=== PATIENT | male | born 1955 | race Two or more races ===

== ENCOUNTER 2024-03-24 19:31 | Inpatient (IN) | payer MEDICARE, MEDICAID, SELFPAY ==
[2024-03-24 19:31] VITALS: BMI 24.3
[2024-03-24 20:05] VITALS: BP 149/90; PULSE 69; RESP 17; TEMP 36.8; O2SAT 97
--- NOTE | 2024-03-24 20:11 | XR_ITS ---
Examination: CT abdomen and pelvis without contrast. Coronal 3-D reconstructions. Sagittal 2-D reconstructions. Date and time of exam:March 24, 2024 1010 hrs. Indications: Left-sided abdominal pain beginning 2 days ago Comparison: July 01, 2009 CTDI: vol (mGy): 5.86 DLP: (mGycm): 363 Technique: Axial images of the abdomen have been obtained, 3 mm slice thickness Intravenous contrast material has not been administered. Low dose protocols were performed. One or more of the following dose reduction techniques were used; automated exposure control, adjustment of the mA and/or KV according to patient size, use of iterative reconstruction technique. Findings: Pneumoperitoneum No focal liver or splenic lesions Absent gallbladder No pancreatic mass Aorta normal size No renal or ureteral calculi, no hydronephrosis No bowel obstruction No pericecal inflammatory change Colonic diverticulosis Prostatomegaly, transverse prostate dimension 4.8 cm Small fat-containing right inguinal hernia Mild thickening of the urinary bladder wall Impression: Pneumoperitoneum, which may be from the patient's colonic diverticulosis, but clinical correlation advised Recommend surgical assessment No diverticulitis Moderate prostatomegaly Mild urinary bladder wall thickening, consider cystitis early outflow obstruction secondary to the patient's prostatomegaly
--- NOTE | 2024-03-24 20:12 | PD.EDRME ---
Rapid Medical Screening Exam RME Arrival date/time: 03/24/24 19:31 68-year-old male presents emergency department complaining of left lower quadrant abdominal pain it has been ongoing for 2 days. Chief Complaint: Abdominal Pain Time Seen by Provider: 03/24/24 20:06 Vital signs: Vital Signs Temperature 98.3 F 03/24/24 20:05 Pulse Rate 69 03/24/24 20:05 Respiratory Rate 17 03/24/24 20:05 Blood Pressure 149/90 H 03/24/24 20:05 Pulse Oximetry (%) 97 03/24/24 20:05 Oxygen Delivery Method Room Air 03/24/24 20:05 Vital signs reviewed by provider: Yes
[2024-03-24] MEDS: KETOROLAC INJ 60 MG/2 ML VIAL 30 MG IM (20:27)
[2024-03-24 20:32] LABS: Collection Type, Urine Clean Catch; Squamous Epithelial Cell,Urine 0 /hpf (0-5)
[2024-03-24 20:38] LABS: Bilirubin,Urine Negative (Negative); Blood,Urine Negative (Negative); Clarity,Urine Clear (Clear/Hazy); Color,Urine Colorless (Lt Yel-Yel); Culture Indicated,Urine Not Indicated; Glucose, Urine Negative (Negative); Ketones,Urine Negative (Negative); Leukocyte Esterase,Urine Negative (Negative); Nitrite,Urine Negative (Negative); PH,Urine 6.5 (5.0-7.0); Protein,Urine Negative (Neg - Trace); RBC,Urine 1 /hpf (0-3); Specific Gravity,Urine 1.007 (1.001-1.035); Urobilinogen,Urine Negative mg/dL (0.0-1.0); WBC,Urine < 1 /hpf (0-5)
[2024-03-24 21:28] LABS: Basophils % (Auto) 0 % (0-2.5); Eosinophils # (Auto) 0.1 Thou/mm3 (0.0-0.5); Eosinophils % (Auto) 1 % (0-10); Hematocrit 45.3 % (41.0-53.0); Hemoglobin 15.3 g/dL (13.5-16.0); Immature Granulocytes % (Auto) 0 % (0-0); Immature Granulocytes Auto 0.01 Thou/mm3 (0.00-0.00); Lymphocytes # (Auto) 2.3 Thou/mm3 (1.0-4.8); Lymphocytes % (Auto) 25 % (10-50); Mean Corpuscular HGB Conc 33.8 g/dl (31.0-37.0); Mean Corpuscular Hemoglobin 30.8 pg (25.0-35.0); Mean Corpuscular Volume 91 fL (80-100); Monocytes # (Auto) 0.8 Thou/mm3 (0.0-0.8); Monocytes % (Auto) 8 % (0-12); Neutrophils # (Auto) 6.2 Thou/mm3 (1.8-7.7); Neutrophils % (Auto) 65 % (37-80); Nucleated Red Blood Cell % 0 /100 WBC (0); Platelet Count 261 Thou/mm3 (140-440); RDW Standard Deviation 41.1 fL (35.1-43.9); Red Blood Count 4.97 Miln/mm3 (4.50-5.90); White Blood Count 9.5 Thou/mm3 (3.8-10.6)
[2024-03-24 22:03] LABS: Alanine Aminotransferase 19 U/L (10-49); Albumin, Serum 4.5 gm/dL (3.4-4.8); Albumin/Globulin Ratio 1.7 (1.2-2.2); Alkaline Phosphatase 81 U/L (46-116); Anion Gap 6 (7-16); Aspartate Amino Transferase 21 U/L (0-34); BUN/Creatinine Ratio 13 Ratio (12-20); Bilirubin,Total 1.4 mg/dL (0.3-1.2); Blood Urea Nitrogen 12 mg/dL (9-23); Calcium 9.7 mg/dL (8.3-10.6); Calcium (Corrected) 9.7 mg/dL (8.5-10.1); Chloride 103 mMol/L (98-107); Creatinine (Component) 0.9 mg/dL (0.6-1.3); Estimated Creatinine Clearance 70.2 mL/min (>60); Globulin 2.7 gm/dL (2.3-3.5); Glucose 97 mg/dL (74-106); Lipase 49 U/L (12-53); Osmolality,Calculated 277 (275-295); Potassium 4.4 mMol/L (3.4-5.1); Sodium 139 mMol/L (136-145); Total Protein 7.2 gm/dL (5.7-8.2); eGFR > 60 See Note
[2024-03-24 23:50] VITALS: BP 141/75; PULSE 52; RESP 18; TEMP 36.6; O2SAT 96
[2024-03-25] VITALS (9 sets, daily range): BP systolic 115–162; BP diastolic 68–93; PULSE 53–67; RESP 16–18; TEMP 36–37.1; O2SAT 95–99; BMI 22.8
[2024-03-25] MEDS: PIPER/TAZO INJ 3.375 GM in SODIUM CHLORIDE 0.9% (P) 50 ML IV (00:25)
[2024-03-25 00:26] LABS: Lactate (Lactic Acid) 0.6 mMol/L (0.4-2.0)
[2024-03-25 00:42] LABS: Partial Thromboplastin Time 29.9 Seconds (22.0-36.0); Prothrombin Time 11.3 Seconds (9.0-12.2)
[2024-03-25 01:09] LABS: Procalcitonin 0.61 ng/ml (0.0-0.49)
--- NOTE | 2024-03-25 01:23 | ESHP_ITS ---
Documentation for date of: 03/25/24 HPI History of Present Illness Chief complaint: Abdominal Pain History of present illness: 68-year-old male with no significant past medical history other than chronic back pain secondary to vocation ([employer]) presenting to the ED on 03/25 with left lower quadrant abdominal pain which started at 10 AM on 03/24. Patient states that he was at his usual baseline and having breakfast this morning when pain slowly started and progressively worsened. He states that he took an ibuprofen which did not help subside the pain; moreover, he denies having any changes in his diet or any trauma to the area. Patient went to his family doctor, [facility], who redirected the patient to the ED as the pain was too severe to manage outpatient. Patient last visits for yearly physical and labs were completed sometime this year; however, he denies any other chronic medical problems or taking any prescribed medications. History was also taken alongside the patient's son who is bedside and who currently lives with the patient. Per son, the patient has recently traveled to [facility] about 2 weeks ago by bus. Patient states that he did not have any sick contacts while on a trip nor does he mention any concerning symptoms such as nausea/vomiting/diarrhea, melena, hematochezia, hematemesis or dysuria. 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 Pertinent lab findings included WBC of 9.5, hemoglobin 15.3, BUN 12, creatinine 0.9, T. bili 1.4, AST 21, ALT 19, alk phos 81, lipase 49, Pro-Renard 0.61. Urinalysis negative for any urinary tract infection. CT abdomen pelvis shows pneumoperitoneum from possible colonic diverticulosis; no diverticulitis, moderate prostatomegaly and mild urinary bladder wall thickening noted. Patient will be admitted secondary to pneumoperitoneum likely due to perforated diverticulosis; will start on IV Zosyn and general surgery (Dr. Tolentino) consulted, appreciate recommendations. Exam Vital Signs Temp Pulse Resp BP Pulse Ox O2 Del Method 97.8 F 53 L 17 143/93 H 99 Room Air 03/24/24 23:50 03/25/24 00:28 03/25/24 00:28 03/25/24 00:28 03/25/24 00:28 03/24/24 23:50 Narrative Exam Physical Exam: GENERAL: Awake, answering questions appropriately, appears stated age HEENT: NC/AT. Moist mucosa. PERRLA/EOMI. CARDIO: Heart RRR, no obvious murmurs, no JVD. PULM: No coughing or visible SOB. Lungs CTA B/L. 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 +Pedal pulses present B/L. NEURO: Oriented x3, assembler 1st shift strength 5/5, Moves extremities x4. Results: Labs 03/24/24 20:41 03/24/24 20:41 Labs: Short CBC 03/24/24 Range/Units 20:41 WBC 9.5 (3.8-10.6) Thou/mm3 Hgb 15.3 (13.5-16.0) g/dL Hct 45.3 (41.0-53.0) % Plt Count 261 (140-440) Thou/mm3 BMP 03/24/24 20:41 Sodium 139 Potassium 4.4 Chloride 103 Carbon Dioxide 30.0 BUN 12 Creatinine 0.9 Glucose 97 Calcium 9.7 Liver Function 03/24/24 Range/Units 20:41 Total Bilirubin 1.4 H (0.3-1.2) mg/dL AST 21 (0-34) U/L ALT 19 (10-49) U/L Alkaline Phosphatase 81 (46-116) U/L Albumin 4.5 (3.4-4.8) gm/dL Urine 03/24/24 Range/Units 20:19 Urine Color Colorless A (Lt Yel-Yel) Urine Clarity Clear (Clear/Hazy) Urine pH 6.5 (5.0-7.0) Ur Specific [place] 1.007 (1.001-1.035) Urine Protein Negative (Neg - Trace) Urine Glucose (UA) Negative (Negative) Quality Measures Quality Measures VTE prophylaxis Advance care planning discussed with:: patient and child Medications Home Medications and Allergies Allergies Allergy/AdvReac Type Severity Reaction Status Date / Time No Known Allergies Allergy Mild Uncoded 11/19/14 21:29 Visit Medications Piperacillin/Tazobactam/Dextrose (Zosyn) 50 mls @ 100 mls/hr IV Q8HR [facility] Stop: 04/01/24 05:59 Ketorolac Tromethamine (Ketorolac Inj 30 Mg/Ml Vial) 30 mg IVP Q6HR PRN PRN Reason: Pain 4-6 Stop: 03/30/24 01:19 Morphine Sulfate (Morphine Sulf Inj 10 Mg/Ml Vial) 0.5 mg IVP Q4HR PRN PRN Reason: Pain 7-10 Ondansetron HCl (Ondansetron Inj 2 Mg/Ml Inj 2 Ml) 4 mg IV Q6H PRN; Protocol PRN Reason: NAUSEA OR VOMITING Stop: 04/24/24 01:12 Discontinued Medications Heparin Sodium (Porcine) (Heparin Sod Inj 5000 Unit/Ml Vial) 5,000 unit SC Q12HR [facility] Stop: 04/08/24 08:59 Piperacillin Sod/Tazobactam (Sod 3.375 gm/ Sodium Chloride) 50 mls @ 100 mls/hr IV X1 ONE Stop: 03/25/24 00:14 Last Infusion: 03/25/24 01:06 Dose: Infused Ketorolac Tromethamine (Ketorolac Inj 60 Mg/2 Ml Vial) 30 mg IM X1 ONE Stop: 03/24/24 20:12 Last Admin: 03/24/24 20:27 Dose: 30 mg Metoclopramide HCl (Metoclopramide Inj 5 Mg/Ml Vial 2 Ml) 5 mg IVP X1 ONE; Protocol Stop: 03/25/24 00:31 Last Admin: 03/25/24 01:07 Dose: Not Given Assessment & Plan Plan 68-year-old male with no significant past medical history other than chronic back pain secondary to vocation ([employer]) presenting with left lower quadrant abdominal pain which started at 10 AM on 03/24 will be admitted secondary to pneumoperitoneum likely due to perforated diverticulosis; will start on IV Zosyn and general surgery (Dr. Tolentino) consulted, appreciate recommendations. #Pneumoperitoneum #Diverticulosis Patient presenting with LLQ pain which started at 10am and has progressively worsened No history of diverticulosis in the past Denies changes to diet, trauma to area, concerning symptoms such as (N/V/D, melena, hematochezia, hematemesis, changes in bowel habits) Patient attempted Ibuprofen which did not help with symptoms In the ED, CT Abd/P was ordered which showed pneumoperitoneum Procal mildly elevated 0.61 Plan: General Surgery consulted, appreciate recs IV Zosyn started NPO pending surgery recs Multimodal analgesia IV Zofran as needed #Elevated T.bili Likely 2/2 to acutely ill status Rest of liver enzymes wnl CT Abd/P shows no active disease process Plan: Monitor for now #Hypertensive Patient has no history of hypertension or taking antihypertensives Likely 2/2 to pain1 Plan: Continue to monitor for now #Moderate prostatomegaly #Mild urinary bladder wall thickening #Chronic Back Pain Chronic medical problems not pertinent to following admission Patient denies dysuria, hematuria or changes in urinary frequency Has a Cleaning put in in the ED for possible surgery Plan: Follow-up with PCP outpatient Hospital Management: Lines - PIV Diet - NPO Bowel - None for now GI prophylaxis - Will consider protonix if patient remains NPO DVT prophylaxis - SCD Dispo - Pneumoperitoneum 2/2 diverticulosis; pending Gen Surg recs Code - Full Patient seen and assessed with attending Dr. Robles and senior resident Dr. Connor Bae, PGY-1 Attending Provider Attestation/Addendum 68-year-old male patient was admitted for abdominal pain. Workup including CT scan showed pneumoperitoneum. Patient stated he had surgery for gallbladder removal many years ago. CT scan of the abdomen also showed diverticulosis. Patient has no fever no leukocytosis. Patient will be admitted antibiotic treatment and surgical evaluation.
[2024-03-25] MEDS: PIPER/TAZO 3.375 GM 50 ML IV ×3 (05:32→21:25)
[2024-03-25 05:36] LABS: Basophils % (Auto) 0 % (0-2.5); Eosinophils # (Auto) 0.2 Thou/mm3 (0.0-0.5); Eosinophils % (Auto) 2 % (0-10); Hematocrit 42.2 % (41.0-53.0); Hemoglobin 14.2 g/dL (13.5-16.0); Immature Granulocytes % (Auto) 0 % (0-0); Immature Granulocytes Auto 0.01 Thou/mm3 (0.00-0.00); Lymphocytes % (Auto) 28 % (10-50); Mean Corpuscular HGB Conc 33.6 g/dl (31.0-37.0); Mean Corpuscular Hemoglobin 30.4 pg (25.0-35.0); Mean Corpuscular Volume 90 fL (80-100); Monocytes # (Auto) 0.7 Thou/mm3 (0.0-0.8); Monocytes % (Auto) 9 % (0-12); Neutrophils # (Auto) 4.4 Thou/mm3 (1.8-7.7); Neutrophils % (Auto) 60 % (37-80); Nucleated Red Blood Cell % 0 /100 WBC (0); Platelet Count 232 Thou/mm3 (140-440); RDW Standard Deviation 40.7 fL (35.1-43.9); Red Blood Count 4.67 Miln/mm3 (4.50-5.90); White Blood Count 7.3 Thou/mm3 (3.8-10.6)
[2024-03-25 06:05] LABS: Alanine Aminotransferase 19 U/L (10-49); Albumin/Globulin Ratio 1.8 (1.2-2.2); Alkaline Phosphatase 71 U/L (46-116); Anion Gap 5 (7-16); Aspartate Amino Transferase < 8 U/L (0-34); BUN/Creatinine Ratio 13 Ratio (12-20); Bilirubin,Total 1.6 mg/dL (0.3-1.2); Blood Urea Nitrogen 12 mg/dL (9-23); Calcium 8.7 mg/dL (8.3-10.6); Calcium (Corrected) 8.7 mg/dL (8.5-10.1); Carbon Dioxide 26.7 mMol/L (20.0-31.0); Cardiac Risk Estimate 2.9 RATIO (4.0-6.7); Chloride 106 mMol/L (98-107); Cholesterol 141 mg/dL (132-200); Creatinine (Component) 0.9 mg/dL (0.6-1.3); Estimated Creatinine Clearance 70.2 mL/min (>60); Globulin 2.2 gm/dL (2.3-3.5); Glucose 98 mg/dL (74-106); HDL Cholesterol 48 mg/dL (40-60); LDL Cholesterol,Calculated 79 mg/dL (0-130); Magnesium 2.5 mg/dL (1.6-2.6); Osmolality,Calculated 275 (275-295); Phosphorous 3.8 mg/dL (2.4-5.1); Potassium 3.8 mMol/L (3.4-5.1); Sodium 138 mMol/L (136-145); Thyroid Stimulating Hormone 2.89 uIU/mL (0.55-4.78); Total Protein 6.2 gm/dL (5.7-8.2); Triglycerides 68 mg/dL (30-150); eGFR > 60 See Note
[2024-03-25 06:20] LABS: Glucose Estimated Average 111 mg/dL (80-131); Hemoglobin A1C 5.5 % Hgb (4.8-6.0)
--- NOTE | 2024-03-25 07:12 | PD.SURCONS ---
HPI Consult details History of present illness: Spoke to patient with phone sign language interpreter 68M who presented to ER with left lower quadrant pain. Patient reports pain began suddenly yesterday morning, in the left lower quadrant, unlike any pain he had had before. He denies any associated nausea, fever or malaise. In ER patient is noted to have normal vital signs, normal WBC, however CT without contrast shows pneumoperitoneum, with diverticulosis but no signs of diverticulitis. This morning patient reports feeling somewhat better with slight improvement in pain PMH: Chronic back pain PSH: None Meds: None Allergies: NKDA Social history: non-smoker Family history: No known malignancy Review of Systems Review of Systems ROS Unobtainable: All systems reviewed & no additional complaints except as documented Meds Home Medications and Allergies Allergies Allergy/AdvReac Type Severity Reaction Status Date / Time No Known Allergies Allergy Mild Uncoded 11/19/14 21:29 Exam Vital Signs Temp Pulse Resp BP Pulse Ox O2 Del Method 98.7 F 53 L 18 122/78 95 Room Air 03/25/24 05:52 03/25/24 05:52 03/25/24 05:52 03/25/24 05:52 03/25/24 05:52 03/25/24 05:52 Constitutional Constitutional: no acute distress Routine Respiratory Exam Respiratory: Present no resp distress Routine Abdominal Exam Abdominal: Present soft and tenderness (Mild left lower quadrant tenderness); Absent distended, rebound, guarding, firm, rigid or mass Results Results: Laboratory Laboratory results: results reviewed Results: Imaging CT scan - abdomen: report reviewed and image reviewed Assessment & Plan Plan 68M overall healthy presenting with left lower quadrant pain and findings of pneumoperitoneum although no signs of diverticulitis or any other inflammatory process Hello. Patient appears very well clinically with improved pain, normal vital signs, normal WBC and lactate; given this clinical picture I explained to patient that I do not recommend surgical exploration at this time. All questions were answered and patient expressed understanding Continue abx NPO, IV fluids Will follow
--- NOTE | 2024-03-25 07:51 | PC.NURSE ---
Pt. here from home to room 19, pt. states he has tenderness to left lower abdominal quadrant, pt. denies any nausea or vomiting, pt. has a valdez draining clear uma urine, pt. states when he coughs or turns there is pain to left lower abdominal quadrant, 2 warm blankets given, pt. states he does not want pain meds at this time.
--- NOTE | 2024-03-25 13:07 | PC.CC ---
Addendum entered by Renny Noel II 03/25/24 13:17: Correction: Pt admitted for Pneumoperitoneum, Diverticulosis, Elevated T. bili, Hypertension, Moderate prostatomegaly, Mild urinary bladder wall thickening, Chronic Back Pain. Original Note: Pt Cta[place] Perry is a 68 yr old male admitted to hospitalist services for new onset A-fib w/RVR, Mild hyponatremia. DIRECTOR SUPPLIER QUALITY CC met with pt and daughter Miri Perry [phone] at bedside to complete initial assessment. At time of encounter pt noted to be alert and oriented to person, place and situation. Pt expressed understanding admission order. Pt able to confirm all demographic information. Pt from home [address] [place] [address], where he lives with his Iliana Perry [phone]. Pt identifies his and daughter as surrogate DM's. At baseline pt reports being independent with ambulation and with completion of ADLs. Pt is semi retired and on Work men's comp. Pt reports he does not require supplemental o2 in the home. Pt is not diabetic and is not on dialysis. Pt reports he does not have a primary provider at this time. Pt reports going to [facility] on [address], when he does see a provider. At time of D/c pt reports he will return home, with family providing transport. Advance Directive not discussed at this time. Pt provided with community resource guide to secure primary provider within the community. Pt and his daughter receptive to resources provided.
--- NOTE | 2024-03-25 16:57 | ESPR_ITS ---
<Statement entered by Wil Khanna MD - 03/25/24 20:18> Patient was seen and examined by me personally. I agree with most of the assessment and plan as discussed with the culinary internship physician, and my attending, Dr. Walters. Vitals, labs reviewed. Patient with TTP in LLQ. Gen Surg following, appreciate recs: Conservative management, NPO/IVF/IV abx. Continue to monitor and consider contrast enema to reevaluate perforation. Wil Khanna MD, PGY-3 Documentation for date of: 03/25/24 Subjective Subjective Interval history: Patient was seen and examined bedside. Complaining of abdominal pain in the left lower quadrant. Reported that his last bowel movement is yesterday. Surgery is consulted and recommended conservative management Exam Vital Signs Temp Pulse Resp BP Pulse Ox O2 Del Method 97.9 F 59 L 17 162/92 H 97 Room Air 03/25/24 12:00 03/25/24 12:00 03/25/24 12:00 03/25/24 12:00 03/25/24 12:00 03/25/24 12:00 Narrative Exam General: Awake. HEENT: Normocephalic, atraumatic, mucous membranes moist. Heart: Regular rate and rhythm, no murmurs. Lungs: Clear to auscultation with no wheezing or crackles. Abdomen: Soft, nondistended, mild tenderness in the left lower quadrant, positive bowel sounds. ?No guarding or rebound tenderness. Neurologic: Alert and oriented x3, no gross neurological deficit, and patient able to move all 4 extremities. Extremities: No edema. Skin: No rash or ecchymoses. Objective Labs 03/26/24 04:44 03/26/24 04:44 Labs: Laboratory Results - last 24 hr 03/24/24 03/24/24 03/25/24 20:19 20:41 00:14 WBC 9.5 RBC 4.97 Hgb 15.3 Hct 45.3 MCV 91 MCH 30.8 MCHC 33.8 RDW Std Deviation 41.1 Plt Count 261 Neut % (Auto) 65 Lymph % (Auto) 25 Dawson % (Auto) 8 Eos % (Auto) 1 Baso % (Auto) 0 Neut # (Auto) 6.2 Lymph # (Auto) 2.3 Dawson # (Auto) 0.8 Eos # (Auto) 0.1 Baso # (Auto) 0.0 Immature Gran # (Auto) 0.01 H Absolute Nucleated RBC 0.00 Immature Gran % 0 Nucleated RBC % 0 PT 11.3 INR 1.0 APTT 29.9 Sodium 139 Potassium 4.4 Chloride 103 Carbon Dioxide 30.0 Anion Gap 6 L BUN 12 Creatinine 0.9 Estim Creat Clear Calc 70.2 eGFR > 60 BUN/Creatinine Ratio [address] Glu mg/dL Hemoglobin A1c Calculated Osmolality 277 Lactic Acid 0.6 Calcium 9.7 Corrected Calcium 9.7 Phosphorus Magnesium Total Bilirubin 1.4 H AST 21 ALT 19 Alkaline Phosphatase 81 Total Protein 7.2 Albumin 4.5 Globulin 2.7 Albumin/Globulin Ratio 1.7 Triglycerides Cholesterol LDL Cholesterol, Calc HDL Cholesterol Cholesterol/HDL Ratio Lipase 49 Procalcitonin 0.61 H TSH Ur Collection Type Clean Catch Urine Color Colorless A Urine Clarity Clear Urine pH 6.5 Ur Specific [place] 1.007 Urine Protein Negative Urine Glucose (UA) Negative Urine Ketones Negative Urine Blood Negative Urine Nitrite Negative Urine Bilirubin Negative Urine Urobilinogen (Auto) Negative Ur Leukocyte Esterase Negative Urine RBC 1 Urine WBC < 1 Ur Squamous Epith Cells 0 Urine Bacteria None Ur Culture Indicated? Not Indicated Blood Type B Positive Antibody Screen NEGATIVE Blood Bank Wristband ID Yes 03/25/24 05:24 WBC 7.3 RBC 4.67 Hgb 14.2 Hct 42.2 MCV 90 MCH 30.4 MCHC 33.6 RDW Std Deviation 40.7 Plt Count 232 Neut % (Auto) 60 Lymph % (Auto) 28 Dawson % (Auto) 9 Eos % (Auto) 2 Baso % (Auto) 0 Neut # (Auto) 4.4 Lymph # (Auto) 2.0 Dawson # (Auto) 0.7 Eos # (Auto) 0.2 Baso # (Auto) 0.0 Immature Gran # (Auto) 0.01 H Absolute Nucleated RBC 0.00 Immature Gran % 0 Nucleated RBC % 0 PT INR APTT Sodium 138 Potassium 3.8 D Chloride 106 Carbon Dioxide 26.7 Anion Gap 5 L BUN 12 Creatinine 0.9 Estim Creat Clear Calc 70.2 eGFR > 60 BUN/Creatinine Ratio [address] Glu mg/dL 111 Hemoglobin A1c 5.5 Calculated Osmolality 275 Lactic Acid Calcium 8.7 Corrected Calcium 8.7 Phosphorus 3.8 Magnesium 2.5 Total Bilirubin 1.6 H AST < 8 ALT 19 Alkaline Phosphatase 71 Total Protein 6.2 Albumin 4.0 D Globulin 2.2 L Albumin/Globulin Ratio 1.8 Triglycerides 68 Cholesterol 141 LDL Cholesterol, Calc 79 HDL Cholesterol 48 Cholesterol/HDL Ratio 2.9 L Lipase Procalcitonin TSH 2.89 Ur Collection Type Urine Color Urine Clarity Urine pH Ur Specific [place] Urine Protein Urine Glucose (UA) Urine Ketones Urine Blood Urine Nitrite Urine Bilirubin Urine Urobilinogen (Auto) Ur Leukocyte Esterase Urine RBC Urine WBC Ur Squamous Epith Cells Urine Bacteria Ur Culture Indicated? Blood Type Antibody Screen Blood Bank Wristband ID Quality Measures Quality Measures VTE prophylaxis Advance care planning discussed with:: patient Assessment & Plan Assessment Current Active Medications: Generic Name Dose Route Start Last Admin Trade Name Freq PRN Reason Stop Dose Admin Piperacillin/Tazobactam/Dextrose 50 mls @ 12.5 mls/hr 03/25/24 15:00 03/25/24 15:00 Zosyn IV 04/01/24 05:59 12.5 mls/hr Q8HR ZEB Administration Ketorolac Tromethamine 30 mg 03/25/24 01:20 Ketorolac Inj 30 Mg/Ml Vial IVP 03/30/24 01:19 Q6HR PRN Pain 4-6 Morphine Sulfate 0.5 mg 03/25/24 01:21 Morphine Sulf Inj 10 Mg/Ml Vial IVP Q4HR PRN Pain 7-10 Ondansetron HCl 4 mg 03/25/24 01:13 Ondansetron Inj 2 Mg/Ml Inj 2 Ml IV 04/24/24 01:12 Q6H PRN NAUSEA OR VOMITING Protocol Pharmacy Consult 1 each 03/25/24 13:51 Pharmacy To Consult Pneumovacc XX 04/24/24 13:50 PRN PRN CONSULT Plan 68-year-old male with no significant past medical history other than chronic back pain secondary to vocation ([employer]) presenting with left lower quadrant abdominal pain which started at 10 AM on 03/24 will be admitted secondary to pneumoperitoneum likely due to perforated diverticulosis; will start on IV Zosyn and general surgery (Dr. Tolentino) consulted, appreciate recommendations. #Pneumoperitoneum #Diverticulosis Patient presenting with LLQ pain which started at 10am and has progressively worsened No history of diverticulosis in the past Denies changes to diet, trauma to area, concerning symptoms such as (N/V/D, melena, hematochezia, hematemesis, changes in bowel habits) Patient attempted Ibuprofen which did not help with symptoms In the ED, CT Abd/P was ordered which showed pneumoperitoneum Procal mildly elevated 0.61 Plan: General Surgery consulted, recommended conservative management IV Zosyn started NPO as recommended by General surgeon except ice chips and meds Multimodal analgesia IV Zofran as needed IV fluids NS @75ml/hr #Hyperbilirubinemia Likely 2/2 to acutely ill status Rest of liver enzymes wnl CT Abd/P shows no active disease process Plan: Monitor for now #Elevated blood pressures Patient has no history of hypertension or taking antihypertensives Likely 2/2 to pain Plan: Continue to monitor for now #Moderate prostatomegaly #Mild urinary bladder wall thickening #Chronic Back Pain Chronic medical problems not pertinent to following admission Patient denies dysuria, hematuria or changes in urinary frequency Has a Cleaning put in in the ED for possible surgery Plan: Follow-up with PCP outpatient Hospital Management: Lines - PIV Diet - NPO GI prophylaxis - protonix DVT prophylaxis - SCD Dispo - medsurg Code - Full Patient plan of care was discussed with the attending physician, Dr. Walters and senior resident Dr. Clemencia Lara, PGY1 Attending Provider Attestation/Addendum I reviewed labs, imaging, EKG, home medications and prior available records. Face to face evaluation was performed by me. I have personally examined the patient and discussed assessment and plan with the IM team. I reviewed the resident note and agree with the plan with exceptions as below. Pneumoperitoneum No peritoneal signs and WBC is WNL. He is hemodynamically stable. Consulted general surgery: Recommended n.p.o. and IV Zosyn. No surgery at this time. Close observation. Management of pain/nausea as needed
[2024-03-25] MEDS: SODIUM CHLORIDE 0.9% 1000 ML 1,000 ML 75 ML IV (18:47)
[2024-03-25] MEDS: PANTOPRAZOLE INJ 40 MG VIAL IVP (18:47)
[2024-03-26] VITALS: BP 124/73; PULSE 61; RESP 18; TEMP 36.4; O2SAT 96
[2024-03-26 04:00] VITALS: BP 102/67; PULSE 60; RESP 18; TEMP 36.4; O2SAT 95
[2024-03-26 05:21] LABS: Basophils % (Auto) 0 % (0-2.5); Eosinophils # (Auto) 0.1 Thou/mm3 (0.0-0.5); Eosinophils % (Auto) 2 % (0-10); Hematocrit 41.8 % (41.0-53.0); Hemoglobin 14.2 g/dL (13.5-16.0); Immature Granulocytes % (Auto) 0 % (0-0); Immature Granulocytes Auto 0.02 Thou/mm3 (0.00-0.00); Lymphocytes # (Auto) 1.5 Thou/mm3 (1.0-4.8); Lymphocytes % (Auto) 22 % (10-50); Mean Corpuscular Hemoglobin 30.5 pg (25.0-35.0); Mean Corpuscular Volume 90 fL (80-100); Monocytes # (Auto) 0.6 Thou/mm3 (0.0-0.8); Monocytes % (Auto) 9 % (0-12); Neutrophils # (Auto) 4.7 Thou/mm3 (1.8-7.7); Neutrophils % (Auto) 67 % (37-80); Nucleated Red Blood Cell % 0 /100 WBC (0); Platelet Count 253 Thou/mm3 (140-440); Red Blood Count 4.65 Miln/mm3 (4.50-5.90)
[2024-03-26 05:38] LABS: Partial Thromboplastin Time 31.1 Seconds (22.0-36.0); Prothrombin Time 11.4 Seconds (9.0-12.2)
[2024-03-26] MEDS: PIPER/TAZO 3.375 GM 50 ML IV ×3 (05:43→21:36)
[2024-03-26 06:11] LABS: Alanine Aminotransferase 16 U/L (10-49); Albumin, Serum 3.9 gm/dL (3.4-4.8); Albumin/Globulin Ratio 1.7 (1.2-2.2); Alkaline Phosphatase 74 U/L (46-116); Anion Gap 10 (7-16); Aspartate Amino Transferase 19 U/L (0-34); BUN/Creatinine Ratio 19 Ratio (12-20); Bilirubin,Total 1.5 mg/dL (0.3-1.2); Blood Urea Nitrogen 19 mg/dL (9-23); Calcium 8.7 mg/dL (8.3-10.6); Calcium (Corrected) 8.8 mg/dL (8.5-10.1); Carbon Dioxide 23.8 mMol/L (20.0-31.0); Chloride 104 mMol/L (98-107); Estimated Creatinine Clearance 63.2 mL/min (>60); Globulin 2.3 gm/dL (2.3-3.5); Glucose 71 mg/dL (74-106); Osmolality,Calculated 275 (275-295); Potassium 3.8 mMol/L (3.4-5.1); Sodium 138 mMol/L (136-145); Total Protein 6.2 gm/dL (5.7-8.2); eGFR > 60 See Note
[2024-03-26 08:00] VITALS: BP 107/71; PULSE 61; RESP 17; TEMP 36.6; O2SAT 95
[2024-03-26] MEDS: PANTOPRAZOLE INJ 40 MG VIAL IVP (08:20)
--- NOTE | 2024-03-26 10:40 | ESPR_ITS ---
Documentation for date of: 03/26/24 Subjective Subjective Brief History: Spoke to patient with phone partnership development manager 68M who presented to ER with left lower quadrant pain. Patient reports pain began suddenly yesterday morning, in the left lower quadrant, unlike any pain he had had before. He denies any associated nausea, fever or malaise. In ER patient is noted to have normal vital signs, normal WBC, however CT without contrast shows pneumoperitoneum, with diverticulosis but no signs of diverticulitis. This morning patient reports feeling somewhat better with slight improvement in pain PMH: Chronic back pain PSH: None Meds: None Allergies: NKDA Social history: non-smoker Family history: No known malignancy Narrative: Pain improved, remaining afebrile with normal WBC, feeling hungry Exam Vital Signs Temp Pulse Resp BP Pulse Ox O2 Del Method 97.9 F 61 17 107/71 95 Room Air 03/26/24 08:00 03/26/24 08:00 03/26/24 08:00 03/26/24 08:00 03/26/24 08:00 03/26/24 08:00 Constitutional Constitutional: no acute distress Routine Respiratory Exam Respiratory: Present no resp distress Routine Abdominal Exam Abdominal: Present soft and tenderness (mild LLQ tenderness); Absent distended, rebound or guarding Results Results: Laboratory Laboratory results: results reviewed Assessment & Plan Plan 68M overall healthy presenting with left lower quadrant pain and findings of pneumoperitoneum although no signs of diverticulitis or any other inflammatory process. Patient appears very well clinically with improved pain, normal vital signs, normal WBC and lactate; given this clinical picture I explained to patient that I do not recommend surgical exploration CLD DC valdez Continue abx
[2024-03-26 12:00] VITALS: BP 121/76; PULSE 55; RESP 17; TEMP 36.5; O2SAT 96
--- NOTE | 2024-03-26 13:09 | CHAP ---
09:30 AM Visited by spiritual care volunteer Provided prayer for Patient.
--- NOTE | 2024-03-26 15:42 | ESPR_ITS ---
Documentation for date of: 03/26/24 Subjective Subjective Interval history: Patient was seen and examined bedside. Stated that his abdominal pain is decreasing. No bowel movements since the time of hospital admission but bowel sounds are heard on examination. Dr. Tolentino is consulted and started on clear liquid diet. Will continue to monitor patient's condition. Exam Vital Signs Temp Pulse Resp BP Pulse Ox O2 Del Method 97.7 F 55 L 17 121/76 96 Room Air 03/26/24 12:00 03/26/24 12:00 03/26/24 12:03/26/24 12:03/26/24 12:03/26/24 12:00 Narrative Exam General: Awake. HEENT: Normocephalic, atraumatic, mucous membranes moist. Heart: Regular rate and rhythm, no murmurs. Lungs: Clear to auscultation with no wheezing or crackles. Abdomen: Soft, nondistended,mild tenderness in the left lower quadrant, positive bowel sounds. ?No guarding or rebound tenderness. Neurologic: Alert and oriented x3, no gross neurological deficit, and patient able to move all 4 extremities. Extremities: No edema. Skin: No rash or ecchymoses. Objective Labs 03/27/24 05:29 03/27/24 05:29 Labs: Laboratory Results - last 24 hr 03/26/24 04:44 WBC 7.0 RBC 4.65 Hgb 14.2 Hct 41.8 MCV 90 MCH 30.5 MCHC 34.0 RDW Std Deviation 39.0 Plt Count 253 Neut % (Auto) 67 Lymph % (Auto) 22 [place] % (Auto) 9 Eos % (Auto) 2 Baso % (Auto) 0 Neut # (Auto) 4.7 Lymph # (Auto) 1.5 [place] # (Auto) 0.6 Eos # (Auto) 0.1 Baso # (Auto) 0.0 Immature Gran # (Auto) 0.02 H Absolute Nucleated RBC 0.00 Immature Gran % 0 Nucleated RBC % 0 PT 11.4 INR 1.0 APTT 31.1 Sodium 138 Potassium 3.8 Chloride 104 Carbon Dioxide 23.8 Anion Gap 10 BUN 19 Creatinine 1.0 Estim Creat Clear Calc 63.2 eGFR > 60 BUN/Creatinine Ratio 19 Glucose 71 L Calculated Osmolality 275 Calcium 8.7 Corrected Calcium 8.8 Total Bilirubin 1.5 H AST 19 ALT 16 Alkaline Phosphatase 74 Total Protein 6.2 Albumin 3.9 Globulin 2.3 Albumin/Globulin Ratio 1.7 Quality Measures Quality Measures VTE prophylaxis Advance care planning discussed with:: patient Assessment & Plan Assessment Current Active Medications: Generic Name Dose Route Start Last Admin Trade Name Freq PRN Reason Stop Dose Admin Piperacillin/Tazobactam/Dextrose 50 mls @ 12.5 mls/hr 03/25/24 15:00 03/26/24 13:26 Zosyn IV 04/01/24 05:59 12.5 mls/hr Q8HR ZEB Administration Ketorolac Tromethamine 30 mg 03/25/24 01:20 Ketorolac Inj 30 Mg/Ml Vial IVP 03/30/24 01:19 Q6HR PRN Pain 4-6 Morphine Sulfate 0.5 mg 03/25/24 01:21 Morphine Sulf Inj 10 Mg/Ml Vial IVP Q4HR PRN Pain 7-10 Ondansetron HCl 4 mg 03/25/24 01:13 Ondansetron Inj 2 Mg/Ml Inj 2 Ml IV 04/24/24 01:12 Q6H PRN NAUSEA OR VOMITING Protocol Pantoprazole Sodium 40 mg 03/25/24 17:15 03/26/24 08:20 Pantoprazole Inj 40 Mg Vial IVP 04/24/24 17:14 40 mg QDAY ZEB Administration Pharmacy Consult 1 each 03/25/24 13:51 Pharmacy To Consult Pneumovacc XX 04/24/24 13:50 PRN PRN CONSULT Plan 68-year-old male with no significant past medical history other than chronic back pain secondary to vocation (flux - neutrinity) presenting with left lower quadrant abdominal pain which started at 10 AM on 03/24 will be admitted secondary to pneumoperitoneum likely due to perforated diverticulosis; will start on IV Zosyn and general surgery (Dr. Tolentino) consulted, appreciate recommendations. #Pneumoperitoneum #Diverticulosis Patient presenting with LLQ pain which started at 10am and has progressively worsened No history of diverticulosis in the past Denies changes to diet, trauma to area, concerning symptoms such as (N/V/D, melena, hematochezia, hematemesis, changes in bowel habits) Patient attempted Ibuprofen which did not help with symptoms In the ED, CT Abd/P was ordered which showed pneumoperitoneum Procal mildly elevated 0.61 Plan: General Surgery consulted, recommended conservative management IV Zosyn started Started on clear liquid diet as recommended by General surgeon except ice chips and meds Multimodal analgesia IV Zofran as needed #Hyperbilirubinemia Likely 2/2 to acutely ill status Rest of liver enzymes wnl CT Abd/P shows no active disease process Plan: Monitor for now #Elevated blood pressures, resolved Patient has no history of hypertension or taking antihypertensives Likely 2/2 to pain Plan: Continue to monitor for now #Moderate prostatomegaly #Mild urinary bladder wall thickening #Chronic Back Pain Chronic medical problems not pertinent to following admission Patient denies dysuria, hematuria or changes in urinary frequency Plan: Follow-up with PCP outpatient Hospital Management: Lines - PIV Diet - Liquid diet GI prophylaxis - protonix DVT prophylaxis - SCD Dispo - medsurg Code - Full Patient plan of care was discussed with the attending physician, Dr. Walters and senior resident Dr. Clemencia Lara, PGY1 Attending Provider Attestation/Addendum I reviewed labs, imaging, EKG, home medications and prior available records. Face to face evaluation was performed by me. I have personally examined the patient and discussed assessment and plan with the IM team. I reviewed the resident note and agree with the plan with exceptions as below. Pneumoperitoneum No peritoneal signs and WBC is WNL. He is hemodynamically stable. Consulted general surgery: Advanced diet to clear liquid. Continue IV Zosyn. No surgery at this time. Close observation. Management of pain/nausea as needed. Monitor for bowel movement for
[2024-03-26 16:00] VITALS: BP 112/79; PULSE 61; RESP 17; TEMP 36.3; O2SAT 97
[2024-03-26 20:00] VITALS: BP 138/80; PULSE 60; RESP 18; TEMP 36.4; O2SAT 95
[2024-03-27] VITALS: BP 121/77; PULSE 60; RESP 18; TEMP 36.3; O2SAT 97
[2024-03-27 04:00] VITALS: BP 115/62; PULSE 58; RESP 18; TEMP 36.6; O2SAT 96
[2024-03-27] MEDS: PIPER/TAZO 3.375 GM 50 ML IV (05:24)
[2024-03-27 06:00] LABS: Basophils # (Auto) 0.1 Thou/mm3 (0.0-0.2); Basophils % (Auto) 1 % (0-2.5); Eosinophils # (Auto) 0.3 Thou/mm3 (0.0-0.5); Eosinophils % (Auto) 4 % (0-10); Hematocrit 39.4 % (41.0-53.0); Hemoglobin 13.7 g/dL (13.5-16.0); Immature Granulocytes % (Auto) 0 % (0-0); Immature Granulocytes Auto 0.02 Thou/mm3 (0.00-0.00); Lymphocytes # (Auto) 1.8 Thou/mm3 (1.0-4.8); Lymphocytes % (Auto) 27 % (10-50); Mean Corpuscular HGB Conc 34.8 g/dl (31.0-37.0); Mean Corpuscular Hemoglobin 30.7 pg (25.0-35.0); Mean Corpuscular Volume 88 fL (80-100); Monocytes # (Auto) 0.7 Thou/mm3 (0.0-0.8); Monocytes % (Auto) 10 % (0-12); Neutrophils # (Auto) 3.8 Thou/mm3 (1.8-7.7); Neutrophils % (Auto) 58 % (37-80); Nucleated Red Blood Cell % 0 /100 WBC (0); Platelet Count 240 Thou/mm3 (140-440); RDW Standard Deviation 39.3 fL (35.1-43.9); Red Blood Count 4.46 Miln/mm3 (4.50-5.90); White Blood Count 6.6 Thou/mm3 (3.8-10.6)
[2024-03-27 06:48] LABS: Alanine Aminotransferase 14 U/L (10-49); Albumin, Serum 3.7 gm/dL (3.4-4.8); Albumin/Globulin Ratio 1.8 (1.2-2.2); Alkaline Phosphatase 72 U/L (46-116); Anion Gap 8 (7-16); BUN/Creatinine Ratio 15 Ratio (12-20); Bilirubin,Total 0.6 mg/dL (0.3-1.2); Blood Urea Nitrogen 15 mg/dL (9-23); Calcium 8.7 mg/dL (8.3-10.6); Calcium (Corrected) 8.9 mg/dL (8.5-10.1); Carbon Dioxide 28.2 mMol/L (20.0-31.0); Chloride 104 mMol/L (98-107); Estimated Creatinine Clearance 63.2 mL/min (>60); Globulin 2.1 gm/dL (2.3-3.5); Glucose 136 mg/dL (74-106); Osmolality,Calculated 282 (275-295); Potassium 3.9 mMol/L (3.4-5.1); Sodium 140 mMol/L (136-145); Total Protein 5.8 gm/dL (5.7-8.2); eGFR > 60 See Note
[2024-03-27 07:00] LABS: Aspartate Amino Transferase 16 U/L (0-34)
[2024-03-27 08:00] VITALS: BP 127/80; PULSE 57; RESP 18; TEMP 36.3; O2SAT 96
[2024-03-27] MEDS: PANTOPRAZOLE INJ 40 MG VIAL IVP (08:05)
--- NOTE | 2024-03-27 09:40 | CHAP ---
Prayed with patient.
--- NOTE | 2024-03-27 10:33 | ESPR_ITS ---
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 Patient reports pain began suddenly yesterday morning, in the left lower quadrant, unlike any pain he had had before. He denies any associated nausea, fever or malaise. In ER patient is noted to have normal vital signs, normal WBC, however CT without contrast shows pneumoperitoneum, with diverticulosis but no signs of diverticulitis. This morning patient reports feeling somewhat better with slight improvement in pain PMH: Chronic back pain PSH: None Meds: None Allergies: NKDA Social history: non-smoker Family history: No known malignancy Narrative: Feeling better today with less pain, no nausea, tolerating regular diet and reports having bowel movements Exam Vital Signs Temp Pulse Resp BP Pulse Ox O2 Del Method 97.3 F 57 L 18 127/80 96 Room Air 03/27/24 08:00 03/27/24 08:00 03/27/24 08:00 03/27/24 08:00 03/27/24 08:00 03/27/24 08:00 Constitutional Constitutional: no acute distress Routine Respiratory Exam Respiratory: Present no resp distress Routine Abdominal Exam Abdominal: Present soft; Absent tenderness or distended Results Results: Laboratory Laboratory results: results reviewed Assessment & Plan Plan 68M overall healthy presenting with left lower quadrant pain and findings of pneumoperitoneum although no signs of diverticulitis or any other inflammatory process. Patient appears very well clinically with improved pain, normal vital signs, normal WBC and lactate; given this clinical picture I explained to patient that I do not recommend surgical exploration OK for dc from my standpoint Would continue PO abx for total 7 days Follow up as outpt with PCP
[2024-03-27 12:00] VITALS: BP 139/80; PULSE 56; RESP 18; TEMP 36.3; O2SAT 96
--- NOTE | 2024-03-27 12:00 | ESDS_ITS ---
<Statement entered by Wil Khanna MD - 03/27/24 21:23> Patient was seen and examined by me personally. I agree with the discharge plan as discussed with the internal wholesaler physician, and my attending, Dr. Walters. Wil Khanna MD, PGY-3 Planned Discharge Date 03/27/24 DS: Providers Provider Date of admission: 03/25/24 01:13 Primary care physician: Physician No Primary/Family Admitting Provider: Kapil Robles MD Attending Provider on Admission: Luke Walters MD Consults: 03/25/24 01:22 Consult to General Surgery Routine Comment: Pneumoperitoneum Consulting Provider: Claudia Tolentino 03/25/24 13:51 Referral [place] Routine Comment: Attending Provider on DC: August Lara MD Discharging Provider: August Lara MD DS: Diagnosis Problem List Completed Was Problem List Reviewed/Reconciled?: Yes Hospital Course Hospital Course Hospital course: 68-year-old male with no significant past medical history other than chronic back pain secondary to vocation ([employer]) presenting to the ED on 03/25 with left lower quadrant abdominal pain and admitted for pneumoperitoneum which was managed conservatively. Lab findings included WBC of 9.5, hemoglobin 15.3, BUN 12, creatinine 0.9, T. bili 1.4, AST 21, ALT 19, alk phos 81, lipase 49, Pro-Renard 0.61. Urinalysis negative for any urinary tract infection. CT abdomen pelvis shows pneumoperitoneum from possible colonic diverticulosis; no diverticulitis, moderate prostatomegaly and mild urinary bladder wall thickening noted. Dr. Tolentino was consulted and recommended conservative management as patient is clinically stable and does not have much symptoms. Patient was treated with IV antibiotics, IV fluids and initially kept on n.p.o., later started on liquid diet and advanced to regular diet. Patient had bowel movement on 03/27/2024. Dr. Tolentino recommended that patient can be discharged home safely. Patient was discharged to home with the following medications and recommendations -Follow-up with Primary doctor within 1 week of discharge. If you do not have appointment, please follow-up with the [facility] with Dr. Lara. Call [phone] to make an appointment. -Continue amoxicillin-clavulanate 500-125mg by mouth twice daily twice daily for 7 days and pantoprazole 40mg by mouth once a day -Stop ibuprofen and meloxicam -Take medications as prescribed. -Return to ED if symptoms persist or return #Pneumoperitoneum #Diverticulosis #Hyperbilirubinemia, resolved #Moderate prostatomegaly #Mild urinary bladder wall thickening #Chronic Back Pain Patient plan of care was discussed with the attending physician, Dr. Walters and senior resident Dr. Clemencia Lara, PGY1 Time Spent with Patient Time attestation: Total time spent providing and/or coordinating discharge services: Time spent: Greater than 30 minutes Exam Vital Signs Temp Pulse Resp BP Pulse Ox O2 Del Method 97.3 F 57 L 18 127/80 96 Room Air 03/27/24 08:00 03/27/24 08:00 03/27/24 08:00 03/27/24 08:00 03/27/24 08:00 03/27/24 08:00 Narrative Exam General: Awake.moderately built and nourished HEENT: Normocephalic, atraumatic, mucous membranes moist. Heart: Regular rate and rhythm, no murmurs. Lungs: Clear to auscultation with no wheezing or crackles. Abdomen: Soft, nondistended, nontender, positive bowel sounds. ?No guarding or rebound tenderness. Neurologic: Alert and oriented x3, no gross neurological deficit, and patient able to move all 4 extremities. Extremities: No edema. Skin: No rash or ecchymoses. Discharge Plan Plan Patient Disposition: HOME (Self Care) Patient condition on transfer: Stable Care Plan Goals: -Follow-up with Primary doctor within 1 week of discharge. If you do not have appointment, please follow-up with the [facility] with Dr. Lara. Call [phone] to make an appointment. -Continue amoxicillin-clavulanate 500-125mg by mouth twice daily twice daily for 7 days and pantoprazole 40mg by mouth once a day -Stop ibuprofen and meloxicam -Take medications as prescribed. -Return to ED if symptoms persist or return -Seguimiento con m?dico de cabecera dentro de 1 semana del titus. Si no tiene ozzy, favor de angeles seguimiento con el centro cl?christopher acad?amadou con la Dra. Lara. Llame al [phone] para programar nuvia ozzy. -Continuar con amoxicilina-clavulanato 500-125 mg por v?a oral dos veces al d?a william 7 d?as y pantoprazol 40 mg por v?a oral nuvia vez al d?a. -Dejar de ibuprofeno y meloxicam. -Ricki los medicamentos seg?n lo prescrito. -Regresar al servicio de urgencias si los s?ntomas persisten o regresan. Prescriptions/Referrals Prescriptions/Med Rec: New pantoprazole 40 mg tablet,delayed release (DR/EC) 40 mg PO QDAY 42 Days Qty: 42 0RF amoxicillin-pot clavulanate 500-125 mg tablet 1 tab PO BID 7 Days Qty: 14 0RF Discontinued ibuprofen 800 mg tablet 800 mg PO TID PRN (Reason: Pain) Patient Comments: TAKE ONE TABLET BY MOUTH THREE TIMES DAILY WITH FOOD OR MILK NEEDED FOR PAIN FOR INFLAMATION meloxicam 15 mg tablet 15 mg PO QDAY PRN (Reason: Pain) Patient Comments: TAKE ONE TABLET BY MOUTH EVERY DAY WITH FOOD Referrals: No Primary/Family,Physician [Primary Care Provider] - Patient/Caregiver Discharge Instructions Discharge Activity: resume usual activities Education Materials: Eating a High-Fiber Diet, DASH Plan Eat Heart Healthy Food Print Language: Azeri Stand Alone Forms: Jennifer Award Info., Patient Portal Info Letter Discharge Order Discharge Orders: Discharge (Routine); Ordered 03/27/24 Ordered By: Noam Diop Quality Discharge Quality Measures VTE prophylaxis MD Attestestation MD Attestation I reviewed labs, imaging, EKG, home medications and prior available records. Face to face evaluation was performed by me. I have personally examined the patient and discussed assessment and plan with the IM team. I reviewed the resident note and agree with the plan with exceptions as below. Pneumoperitoneum No peritoneal signs and WBC is WNL. He is hemodynamically stable. Consulted general surgery: Okay to discharge. Will discharge on p.o. Augmentin. Return to ED if symptoms got worse. Time spent is 35 minutes. More than 50% of the time was spent on patient education and coordination of care.
== END 2024-03-27 13:43 | disposition home or self-care (01) | DRG 392 ==
LOC: SERX 23:27 → SERHOLD 03-25 01:29 → S3SX 03-25 12:59
PROVIDERS: Admitting Provider Internal Medicine; Emergency Provider Emergency Medicine; Visit Provider Student in an Organized Health Care Education/Training Program
DX: K57.30 Diverticulosis of large intestine without perforation or abscess without bleeding (principal); R17 Unspecified jaundice; N40.0 Benign prostatic hyperplasia without lower urinary tract symptoms; N32.89 Other specified disorders of bladder; G89.29 Other chronic pain; M54.9 Dorsalgia, unspecified; I10 Essential (primary) hypertension
CPT/HCPCS: 36415; 74176; 80053; 80061; 81001; 83036; 83605; 83690; 83735; 84100; 84145; 84443; 85025; 85610; 85730; 86850; 86900; 86901; 87040; 96365; 96367; 96372; 99285; J1885; J2470; J2543; J7030; J7050